=== PATIENT | female | born 1970 | race Caucasian/White ===

== ENCOUNTER → 2017-02-14 | Outpatient (CLI) | payer OTHER ==
[~2017-02-14] MED LIST: BENTYL 20 MG TA20 M1 PO; FISHOIL; METFORMIN; MIRALAX255 GM PO; MULTIVITAMINS; PHENTERMINE HCL8 MG; VITAMIN D400 UNI1
== END ==
LOC: ULTRA 11:23
DX: R10.2 Pelvic and perineal pain (principal)

== ENCOUNTER → 2021-07-25 | Outpatient (CLI) | payer OTHER | LOC: CAT 13:22 | PROVIDERS: ATTEND Family Medicine | DX: Z13.6 Encounter for screening for cardiovascular disorders (principal); I25.10 Atherosclerotic heart disease of native coronary artery without angina pectoris; E78.00 Pure hypercholesterolemia, unspecified ==